=== PATIENT | female | born 1940 | race Caucasian/White ===

== ENCOUNTER → 2016-12-10 | Outpatient (CLI) | payer MEDICARE, BC ==
[~2016-12-10] MED LIST: BENT20TA PO; ENAL2.5 PO; LEVO50TA4 PO; MOTR100T PO; MUSCLE RELAXER; ZOFR4TAB3 SL
--- NOTE | 2016-12-12 11:16 | EKG ---
Date Performed: 12/10/2016 Time Performed: 16:35:16 PTAGE: 76 years EKG: Sinus rhythm POSSIBLE LEFT ATRIAL ENLARGEMENT BORDERLINE ECG NO PREVIOUS TRACING DOCTOR: Lester Deluna Interpretating Date/Time 12/12/2016 11:13:11
== END ==
LOC: HRAD 15:55
PROVIDERS: ATTEND Surgery
DX: Z01.818 Encounter for other preprocedural examination (principal); R94.31 Abnormal electrocardiogram [ECG] [EKG]
CPT/HCPCS: 93005

== ENCOUNTER → 2016-12-18 | Day surgery (SDC) | payer MEDICARE, BC ==
[~2016-12-18] MED LIST changes: +BUPIVACAINE HCL PF 0.5% 10 ML VIAL ONE; +ISOSULFAN BLUE 50 MG/5 ML VIAL SQ ONE; +KETOROLAC TROMETHAMINE 30 MG/ML (IVP) VIAL ONE; +LACTATED RINGER'S 1000 ML INJ 1,000 ML ONE; +MIDAZOLAM HCL 2 MG/2 ML VIAL ONE; +ONDANSETRON HCL 4 MG/2 ML VIAL IV PUSH ONE; +PROPOFOL 100 MG/10 ML INJ IV ONE; +SODIUM CHLORIDE 0.9% 20 ML VIAL ONE; +ceFAZolin 2 GM PREMIX 50 ML ONE; +ceFAZolin INJ 1,000 MG VIAL ONE; +oxyCODONE/ACETAMINOPHEN 5 MG/325 MG TAB ONE
--- NOTE | 2016-12-18 13:17 | TN ---
cc: KENYETTA DOAN M.D. DATE OF SURGERY 12/18/2016 PRINCIPAL DIAGNOSIS Left breast cancer POSTOPERATIVE DIAGNOSIS Left breast cancer PROCEDURE PERFORMED Left breast needle-localized lumpectomy with oncoplastic reconstruction and left axillary sentinel lymph node biopsy. SURGEON Kenyetta Doan MD ANESTHESIA General via LMA device. INDICATION The patient is a 76-year-old female who had a density close to the chest wall which was less than 1 cm in size on imaging. Ultrasound-guided biopsy demonstrated an 8 mm invasive lobular carcinoma which was ER positive and HER2/charlotte positive. She now presents for definitive surgical therapy. PROCEDURE PERFORMED After informed consent was obtained and site verification was performed, the patient was brought to the radiology suite where she underwent needle localization of her prior biopsy site and peritumoral radionuclide injection. She was then brought to the major operating room where she underwent general anesthesia via an LMA device. The left breast and arm were prepped and draped in sterile fashion. 5 cc of half-strength Lymphazurin were injected in the subareolar left breast and a 5-minute massage was performed. She was given a single dose of IV Ancef and sequential compression hose were placed. An incision was anesthetized at the inferior aspect of the left axillary hairline and both sharp and electrocautery dissection was performed until the clavipectoral fascia was divided and the level I axilla was entered. There were blue lymphatic channels identified and a single blue lymph node was noted and circumferentially dissected free from surrounding structures. This lymph node had a count of 223 and was 2+ blue. No other sentinel lymph nodes were identified and the background count in the axilla was six. Good hemostasis was noted and the wound was closed using interrupted 3-0 Vicryl subcutaneous sutures and a 4-0 Monocryl subcuticular suture. The long thoracic, thoracodorsal, axillary vein, and intercostal brachial nerve were all identified and remained intact throughout the dissection. Attention was then turned to the left breast where a wire was identified and the lesion was noted at 1 o'clock 7 cm from the nipple. A periareolar skin incision was anesthetized and incised sharply. Sharp dissection was performed out to the wire entry point through the skin and the wire was secured with a hemostat and cut off at the skin. A 2-0 silk transfixion suture was placed at the wire entry point into the breast tissue and both sharp and electrocautery dissection were then performed circumferentially around the wire. The lesion was close to the chest wall and the dissection was carried down to the pectoralis muscle. The specimen was oriented with two sutures laterally, one long suture anteriorly, and one short suture superiorly. The specimen was then removed and sent to mammography and the clip and density were present within the specimen. It was then sent for permanent pathologic evaluation. There was a significant upper outer quadrant defect extending down to the muscle and the surrounding breast tissue was mobilized at the level of the anterior breast fascia and the pectoralis muscle. Four clips were placed on the muscle at the site of the tumor and the overlying breast tissue was circumferentially dissected and loosely approximated using interrupted Vicryl sutures. Good hemostasis was noted and the subcutaneous tissue was reapproximated with interrupted 3-0 Vicryl sutures. The skin was reapproximated with a 4-0 Monocryl subcuticular suture and Steri-Strips and sterile dressings were then applied to the breast and axillary wounds. The patient tolerated the procedure well with minimal blood loss and she was extubated in the operating room and brought to the recovery room in good condition. All sponge and needle counts were correct at the conclusion of the case. MD ARTHUR Hernandez/MIL /12:54 PM /1:08 PM
== END | disposition home or self-care (01) ==
LOC: ESDC 07:02
PROVIDERS: ATTEND Surgery
DX: C50.912 Malignant neoplasm of unspecified site of left female breast (principal)
CPT/HCPCS: 00400; 01610; 19125; 38525; 38792; 88305; 88307; J0690; J1885; J2250; J2405; J3010; J7120; Q9968

== ENCOUNTER 2017-01-10 12:21 | Emergency (ER) | payer MEDICARE, BC ==
[~2017-01-10] VITALS: Ht 157.5 cm; Wt 52.0 kg
[~2017-01-10 12:21] MED LIST changes: -BENT20TA PO; -BUPIVACAINE HCL PF 0.5% 10 ML VIAL ONE; -ISOSULFAN BLUE 50 MG/5 ML VIAL SQ ONE; -KETOROLAC TROMETHAMINE 30 MG/ML (IVP) VIAL ONE; -LACTATED RINGER'S 1000 ML INJ 1,000 ML ONE; -LEVO50TA4 PO; -MIDAZOLAM HCL 2 MG/2 ML VIAL ONE; -ONDANSETRON HCL 4 MG/2 ML VIAL IV PUSH ONE; -PROPOFOL 100 MG/10 ML INJ IV ONE; -SODIUM CHLORIDE 0.9% 20 ML VIAL ONE; -ZOFR4TAB3 SL; -ceFAZolin 2 GM PREMIX 50 ML ONE; -ceFAZolin INJ 1,000 MG VIAL ONE; -oxyCODONE/ACETAMINOPHEN 5 MG/325 MG TAB ONE
[2017-01-10 12:24] VITALS: BP 116/51; PULSE 69; RESP 18; TEMP 98.7; O2SAT 99
[2017-01-10] MEDS ORDERED: LEVO50TA4 PO (12:30)
[2017-01-10 12:41] LABS: AUTOMATED NEUTROPHIL # 4.2 TH/MM3 (1.8-7.7); BASOPHIL # 0.1 TH/MM3 (0-0.2); BASOPHIL % 1.4 % (0.0-2.0); EOSINOPHIL # 0.1 TH/MM3 (0-0.4); EOSINOPHIL % 1.1 % (0.0-4.0); HEMATOCRIT 34.2 % (35.0-46.0); HEMO FLAGS DIFF FINAL; LYMPH % 16.9 % (9.0-44.0); MEAN CELL VOLUME 88.2 FL (80.0-100.0); MEAN CORPUSCULAR HEMOGLOBIN 29.5 PG (27.0-34.0); MEAN CORPUSCULAR HGB CONC 33.5 % (32.0-36.0); MONO % 10.7 % (0.0-8.0); NEUT % 69.9 % (16.0-70.0); PLATELET COUNT 213 TH/MM3 (150-450); RED BLOOD COUNT 3.87 MIL/MM3 (4.00-5.30); RED CELL DISTRIBUTION WIDTH 12.6 % (11.6-17.2); WHITE BLOOD COUNT 6.1 TH/MM3 (4.0-11.0)
--- NOTE | 2017-01-10 12:41 | PD ---
HPI Chief Complaint: Syncope/Near-Syncope Time Seen by Provider: 12:32 Travel History International Travel<30 days: No Contact w/Intl Traveler<30days: No Traveled to known affect area: No History of Present Illness HPI 76-year-old female patient with his history of hypothyroidism, presents to the ER today because she has had a one-week history of sore throat, headaches, and lightheadedness which worsened today, had a syncopal episode according to patient's . She states she is also nauseous and vomited. She has had previous episodes of syncope when she does not eat in time according to her . Patient states that she has been having a viral illness and states that he has also had some similar symptoms for the past week. Modifying Factors: None Associated Signs & Symptoms: Sore throat, headaches, lightheadedness, syncope Risk Factors: Sick contact [facility] Past Medical History Cancer: Yes (BREAST) Diminished Hearing: No Neurologic: Yes (VERTIGO) Thyroid Disease: Yes Influenza Vaccination: No ?: Not Past Surgical History Other Surgery: Yes (LEFT LUMPECTOMY) Social History Alcohol Use: No Tobacco Use: No Substance Use: No Allergies-Medications (Allergen,Severity, Reaction): Coded Allergies: No Known Allergies (Unverified , 01/10/17) Reported Meds & Prescriptions Reported Meds & Active Scripts Active Reported Levothyroxine (Levothyroxine Sodium) 50 Mcg Tab 50 Mcg PO DAILY Review of Systems Except as stated in HPI: all other systems reviewed are Neg Physical Exam Narrative GENERAL: Well-developed elderly white female patient who is currently not in acute distress. Awake and oriented 3. SKIN: Focused skin assessment warm/dry. HEAD: Atraumatic. Normocephalic. EYES: Pupils equal and round. No scleral icterus. No injection or drainage. ENT: No nasal bleeding or discharge. Mucous membranes pink and moist. NECK: Trachea midline. No JVD. CARDIOVASCULAR: Regular rate and rhythm. No murmur appreciated. Pulses are present and equal bilaterally. RESPIRATORY: No accessory muscle use. Clear to auscultation. Breath sounds equal bilaterally. GASTROINTESTINAL: Abdomen soft, non-tender, nondistended. Hepatic and splenic margins not palpable. MUSCULOSKELETAL: No obvious deformities. No clubbing. No cyanosis. No edema. NEUROLOGICAL: Awake and alert. No obvious cranial nerve deficits. Motor grossly within normal limits. Normal speech. PSYCHIATRIC: Appropriate mood and affect; insight and judgment normal. Data Data Last Documented VS Vital Signs Date Time Temp Pulse Resp B/P Pulse Ox O2 Delivery O2 Flow Rate FiO2 01/10/17 12:43 65 18 129/60 99 Room Air 01/10/17 12:24 98.7 Orders Complete Blood Count With Diff (01/10/17 12:32) Comprehensive Metabolic Panel (01/10/17 12:32) Magnesium (Mg) (01/10/17 12:32) Ckmb (Isoenzyme) Profile (01/10/17 12:32) Troponin I (01/10/17 12:32) Urinalysis - C+S If Indicated (01/10/17 12:32) Chest, Single Ap (01/10/17 12:32) Ecg Monitoring (01/10/17 12:32) Iv Access Insert/Monitor (01/10/17 12:32) Oximetry (01/10/17 12:32) Ondansetron Inj (Zofran Inj) (01/10/17 12:45) Sodium Chloride 0.9% Flush (Ns Flush) (01/10/17 12:45) Ct Brain W/O Iv Contrast(Rout) (01/10/17 13:23) Labs Laboratory Tests Test 01/10/17 01/10/17 12:35 14:10 White Blood Count 6.1 TH/MM3 Red Blood Count 3.87 MIL/MM3 Hemoglobin 11.4 GM/DL Hematocrit 34.2 % Mean Corpuscular Volume 88.2 FL Mean Corpuscular Hemoglobin 29.5 PG Mean Corpuscular Hemoglobin 33.5 % Concent Red Cell Distribution Width 12.6 % Platelet Count 213 TH/MM3 Mean Platelet Volume 7.9 FL Neutrophils (%) (Auto) 69.9 % Lymphocytes (%) (Auto) 16.9 % Monocytes (%) (Auto) 10.7 % Eosinophils (%) (Auto) 1.1 % Basophils (%) (Auto) 1.4 % Neutrophils # (Auto) 4.2 TH/MM3 Lymphocytes # (Auto) 1.0 TH/MM3 Monocytes # (Auto) 0.7 TH/MM3 Eosinophils # (Auto) 0.1 TH/MM3 Basophils # (Auto) 0.1 TH/MM3 CBC Comment DIFF FINAL Differential Comment Sodium Level 142 MEQ/L Potassium Level 3.6 MEQ/L Chloride Level 108 MEQ/L Carbon Dioxide Level 24.2 MEQ/L Anion Gap 10 MEQ/L Blood Urea Nitrogen 6 MG/DL Creatinine 0.83 MG/DL Estimat Glomerular Filtration 67 ML/MIN Rate Random Glucose 109 MG/DL Calcium Level 7.7 MG/DL Magnesium Level 2.0 MG/DL Total Bilirubin 0.5 MG/DL Aspartate Amino Transf 15 U/L (AST/SGOT) Alanine Aminotransferase 16 U/L (ALT/SGPT) Alkaline Phosphatase 48 U/L Total Creatine Kinase 48 U/L Troponin I LESS THAN 0.02 NG/ML Total Protein 6.3 GM/DL Albumin 3.0 GM/DL Urine Collection Type CLEAN CATCH Urine Color YELLOW Urine Turbidity CLEAR Urine pH 7.0 Urine Specific [place] 1.012 Urine Protein TRACE mg/dL Urine Glucose (UA) NEG mg/dL Urine Ketones TRACE mg/dL Urine Occult Blood NEG Urine Nitrite NEG Urine Bilirubin NEG Urine Leukocyte Esterase SMALL Urine WBC 0-2 /hpf Urine Squamous Epithelial 0-5 /hpf Cells Urine Amorphous Sediment FEW Urine Hyaline Casts 0-2 /lpf Microscopic Urinalysis Comment CULT NOT INDICATED MDM Medical Decision Making Medical Screen Exam Complete: Yes Emergency Medical Condition: Yes Medical Record Reviewed: Yes Interpretation(s) EKG shows NSR, no ST elevation or depression, and no arrhythmias. No significant T-wave inversions. Laboratory Tests Test 01/10/17 01/10/17 12:35 14:10 Red Blood Count 3.87 MIL/MM3 (4.00-5.30) Hemoglobin 11.4 GM/DL (11.6-15.3) Hematocrit 34.2 % (35.0-46.0) Monocytes (%) (Auto) 10.7 % (0.0-8.0) Chloride Level 108 MEQ/L (98-107) Blood Urea Nitrogen 6 MG/DL (7-18) Estimat Glomerular Filtration 67 ML/MIN (>89) Rate Random Glucose 109 MG/DL (74-106) Calcium Level 7.7 MG/DL (8.5-10.1) Troponin I LESS THAN 0.02 NG/ML (0.02-0.05) Total Protein 6.3 GM/DL (6.4-8.2) Albumin 3.0 GM/DL (3.4-5.0) Urine Ketones TRACE mg/dL (NEG) Urine Leukocyte Esterase SMALL (NEG) Last [address] 01/10/17 1323 Signed Impressions: Service Date/Time: Tuesday, January 10, 2017 13:55 - CONCLUSION: No acute disease. Gonzalo Stanley MD Chest X-Ray 01/10/17 1232 Signed Impressions: Service Date/Time: Tuesday, January 10, 2017 13:06 - CONCLUSION: No acute disease. Gonzalo Stanley MD Differential Diagnosis Syncopedehydration versus electrolyte abnormalities versus dysrhythmias versus vasovagal versus acute intracranial processes Narrative Course Patient was initially hypotensive and patient had been given IV fluids in the ER. Lab work did not indicate any signs of significant dehydration or electrolyte abnormalities. On initial evaluation, patient denies any significant headaches now. She has no focal neurological deficits and is able to ambulate in the ER after IV fluids without issues. CT of the brain did not reveal any signs of acute cranial processes. At this point, my plan would be to release the patient with follow-up closely with primary care physician. Stay hydrated. Return for any worsening in symptoms as needed. The plan has been discussed with the patient and she states understanding. Diagnosis Primary Impression: Syncope Med/Other Pt SpecificInfo: Prescription(s) given Scripts Ondansetron Odt (Zofran Odt)4 Mg Tab4 Mg SL Q6HR PRN (Nausea/Vomiting) #7 TAB Ref 0 Prov:Vaishnavi Sanchez MD 01/10/17 Disposition: 01 DISCHARGE HOME Condition: Stable Vaishnavi Sanchez MD Jan 10, 2017 12:41
[2017-01-10 12:43] VITALS: BP 129/60; PULSE 65; RESP 18; O2SAT 99
[2017-01-10] MEDS ORDERED: ONDANSETRON HCL 4 MG/2 ML VIAL IVP ONE (12:45)
[2017-01-10] MEDS ORDERED: SODIUM CHLORIDE 0.9% FLUSH 10 ML FLUSH IVF PRN (12:45)
[2017-01-10 12:50] LABS: CHLORIDE 108 MEQ/L (98-107); POTASSIUM 3.6 MEQ/L (3.5-5.1); SODIUM (NA) 142 MEQ/L (136-145)
[2017-01-10 12:53] LABS: ANION GAP 10 MEQ/L (5-15); BICARBONATE 24.2 MEQ/L (21.0-32.0); BLOOD UREA NITROGEN 6 MG/DL (7-18)
[2017-01-10 12:56] LABS: ALT (GPT) 16 U/L (10-53); AST (GOT) 15 U/L (15-37); GLOMERULAR FILTRATION RATE 67 ML/MIN (>89)
[2017-01-10 12:58] LABS: TOTAL BILIRUBIN ADULT 0.5 MG/DL (0.2-1.0)
[2017-01-10 12:59] LABS: ALKALINE PHOSPHATASE 48 U/L (45-117)
[2017-01-10 13:15] LABS: CREATINE KINASE 48 U/L (26-192)
--- NOTE | 2017-01-10 13:25 | RADHPO ---
EXAM DATE/TIME: 01/10/2017 13:06 [facility] COMPARISON: No previous studies available for comparison. INDICATIONS : Syncope, palpitations, nausea and vomiting MEDICAL HISTORY : None. SURGICAL HISTORY : lumpectomy ENCOUNTER: Initial ACUITY: 4 - 6 days PAIN SCORE: 0/10 LOCATION: Bilateral chest FINDINGS: A single view of the chest demonstrates the lungs to be symmetrically aerated without evidence of mas s, infiltrate or effusion. The cardiomediastinal contours are unremarkable. Osseous structures are intact. Clips are seen over the left chest. CONCLUSION: No acute disease. Gonzalo Stanley MD on January 10, 2017 at 13:23 Board Certified Radiologist. This report was verified electronically.
[2017-01-10 14:21] LABS: BLOOD, URINE NEG (NEG); GLUCOSE,URINE NEG (NEG); KETONE, URINE TRACE mg/dL (NEG); NITRITE,URINE NEG (NEG)
[2017-01-10 14:27] LABS: METHOD OF COLLECTION CLEAN CATCH; URINE COLOR YELLOW (YELLW/STRAW)
[2017-01-10 14:28] LABS: COMMENT (UR) CULT NOT INDICATED; CULTURE IF INDICATED CULT NOT INDICATED; HYALINE CAST, URINE 0-2 /lpf (RARE); SQUAMOUS EPITHELIAL CELL URINE 0-5 /hpf (0-5); WBC, URINE 0-2 /hpf (0-5)
--- NOTE | 2017-01-10 14:32 | RADHPO ---
EXAM DATE/TIME: 01/10/2017 13:55 [facility] COMPARISON: No previous studies available for comparison. INDICATIONS : Syncope. RADIATION DOSE: 60.92 CTDIvol (mGy) MEDICAL HISTORY : Carcinoma, breast. SURGICAL HISTORY : Left lumpectomy. ENCOUNTER: Initial ACUITY: 1 day PAIN SCALE: 0/10 LOCATION: cranial TECHNIQUE: Multiple contiguous axial images were obtained of the head. Using automated exposure control and adj ustment of the mA and/or kV according to patient size, radiation dose was kept as low as reasonably a chievable to obtain optimal diagnostic quality images. FINDINGS: CEREBRUM: The ventricles are normal for age. No evidence of midline shift, mass lesion, hemorrhage or acute in farction. No extra-axial fluid collections are seen. POSTERIOR FOSSA: The cerebellum and brainstem are intact. The 4th ventricle is midline. The cerebellopontine angle i s unremarkable. EXTRACRANIAL: The visualized portion of the orbits is intact. SKULL: The calvaria is intact. No evidence of skull fracture. CONCLUSION: No acute disease. Gonzalo Stanley MD on January 10, 2017 at 14:30 Board Certified Radiologist. This report was verified electronically.
[2017-01-10 14:44] VITALS: BP 131/58
[2017-01-10] MEDS ORDERED: ZOFR4TAB3 SL (14:44)
== END 2017-01-10 14:50 | disposition home or self-care (01) ==
LOC: PHED 12:21
DX: R55 Syncope and collapse (principal); R51 Headache; J02.9 Acute pharyngitis, unspecified; R42 Dizziness and giddiness; E03.9 Hypothyroidism, unspecified; Z85.3 Personal history of malignant neoplasm of breast
CPT/HCPCS: 70450; 71010; 80053; 81001; 82550; 83735; 84484; 85025; 96374; 99284; J2405

== ENCOUNTER → 2017-01-15 | Day surgery (SDC) | payer MEDICARE, BC ==
[~2017-01-15] MED LIST changes: +BENT20TA PO; +BUPIVACAINE HCL PF 0.5% 10 ML VIAL ONE; +BUPIVACAINE/EPINEPHRINE 0.5% 50 ML VIAL ONE; -ENAL2.5 PO; +HEPARIN SODIUM - IV 10,000 UNITS/10 ML VIAL ONE; +KETOROLAC TROMETHAMINE 30 MG/ML (IVP) VIAL IV PUSH ONE; +LACTATED RINGER'S 1000 ML INJ 1,000 ML ONE; +LEVO50TA4 PO; +MIDAZOLAM HCL 2 MG/2 ML VIAL ONE; -MOTR100T PO; -MUSCLE RELAXER; +ONDANSETRON HCL 4 MG/2 ML VIAL IV PUSH ONE; +PROPOFOL 200 MG/20 ML AMP IV ONE; +SODIUM CHLORIDE 0.9% 20 ML VIAL ONE; +SODIUM CHLORIDE 0.9% INJ 10 ML ONE; +ZOFR4TAB3 SL; +ceFAZolin 2 GM PREMIX 50 ML ONE
--- NOTE | 2017-01-15 11:11 | TN ---
cc: KENYETTA DOAN DATE OF SURGERY 01/15/2017 PRINCIPAL DIAGNOSIS Lobular carcinoma of the left breast with positive superior margin. ATTENDING PHYSICIAN Kenyetta Doan MD PROCEDURE PERFORMED Re-excision of left breast superior margin and right subclavian [id number] placement. ANESTHESIA General via LMA device. INDICATION The patient is a 76-year-old female who had a recent left breast needle-localized lumpectomy and sentinel lymph node biopsy for stage I invasive lobular carcinoma. The superior margin was positive and her tumor was HER2/charlotte amplified. There has been a recommendation for chemotherapy and she now presents for port placement and re-excision of her positive superior margin. FINDINGS AT THE TIME OF SURGERY Normal right subclavian anatomy was identified and the left breast lumpectomy cavity was easily identified. There was no gross evidence of residual disease. PROCEDURE PERFORMED After informed consent was obtained and site verification was performed, the patient was brought to the major operating room where she underwent general anesthesia via an LMA device. She was given a single dose of IV Ancef and sequential compression hose were placed. The right and left chest were prepped and draped in sterile fashion. The arms were tucked and she was placed in the Trendelenburg position. The right subclavian vein was accessed via percutaneous cannulation and a J-wire was advanced easily into the central circulation via the Seldinger technique where its position was confirmed with fluoroscopy. Local analgesia was applied around the wire and both sharp and electrocautery dissection were performed to create a subcutaneous port for the reservoir. The catheter was measured out at 30 cm and cut off. A peel-away sheath and introducer were advanced over the wire under direct fluoroscopic vision and the introducer and wire were removed. The catheter advanced easily into the central circulation and the peel-away sheath was removed. Fluoroscopy demonstrated good position of the catheter tip at 17 cm and it was cut off at that point and secured to the reservoir. The reservoir was noted to flush and aspirate easily and it was secured to the chest wall with a single 2-0 Prolene suture. The wound was closed using interrupted 3-0 Vicryl subcutaneous sutures and a 4-0 Monocryl subcuticular suture. Steri-Strips and sterile dressing were applied. The patient was taken out of Trendelenburg and the periareolar left breast scar was anesthetized with 0.5% Marcaine plain. Sharp dissection was performed until the lumpectomy cavity was identified. The seroma was aspirated and the superior margin was identified and sharply demarcated and excised. A stitch was placed on the new margin which was two different segments of superior margin tissue and these were sent permanently as a superior margin specimen. Hemostasis was easily obtained with electrocautery and the wound was closed using interrupted 3-0 Vicryl subcutaneous sutures and a 4-0 Monocryl subcuticular suture. Steri-Strips and a sterile dressing were applied. The patient tolerated the procedure well with an estimated blood loss of 20 cc total and she was extubated in the operating room and brought to the recovery room in good condition. All sponge and needle counts were correct at the conclusion of the case. MD ARTHUR Hernandez/MIL /10:52 AM /11:06 AM
== END | disposition home or self-care (01) ==
LOC: ESDC 07:17
PROVIDERS: ATTEND Surgery
DX: C50.912 Malignant neoplasm of unspecified site of left female breast (principal)
CPT/HCPCS: 00400; 00532; 19301; 36561; 77001; 88305; J0690; J1644; J1885; J2250; J2405; J3010; J7120; 88307; C1788; J1642

== ENCOUNTER 2017-01-30 12:08 | Emergency (ER) | payer MEDICARE, BC ==
[~2017-01-30] VITALS: Ht 157.5 cm; Wt 52.6 kg
[~2017-01-30 12:08] MED LIST changes: -BENT20TA PO; -BUPIVACAINE HCL PF 0.5% 10 ML VIAL ONE; -BUPIVACAINE/EPINEPHRINE 0.5% 50 ML VIAL ONE; -HEPARIN SODIUM - IV 10,000 UNITS/10 ML VIAL ONE; -KETOROLAC TROMETHAMINE 30 MG/ML (IVP) VIAL IV PUSH ONE; -LACTATED RINGER'S 1000 ML INJ 1,000 ML ONE; -MIDAZOLAM HCL 2 MG/2 ML VIAL ONE; -ONDANSETRON HCL 4 MG/2 ML VIAL IV PUSH ONE; -PROPOFOL 200 MG/20 ML AMP IV ONE; -SODIUM CHLORIDE 0.9% 20 ML VIAL ONE; -SODIUM CHLORIDE 0.9% INJ 10 ML ONE; -ceFAZolin 2 GM PREMIX 50 ML ONE
[2017-01-30 12:24] VITALS: BP 150/77; PULSE 60; RESP 18; TEMP 97.4; O2SAT 100
[2017-01-30 12:40] LABS: BLOOD, URINE NEG (NEG); GLUCOSE,URINE NEG (NEG); KETONE, URINE NEG (NEG); NITRITE,URINE NEG (NEG); PH, URINE 6.5 (5.0-8.5)
[2017-01-30] MEDS ORDERED: MORPHINE SULFATE 4 MG/ML INJ IV PUSH ONE (12:45)
[2017-01-30] MEDS ORDERED: SODIUM CHLORIDE 0.9% FLUSH 10 ML FLUSH IV FLUSH PRN (12:45)
[2017-01-30] MEDS ORDERED: ONDANSETRON HCL 4 MG/2 ML VIAL IVP ONE (12:45)
[2017-01-30 12:46] LABS: COMMENT (UR) CULT NOT INDICATED; CULTURE IF INDICATED CULT NOT INDICATED; METHOD OF COLLECTION CLEAN CATCH; SQUAMOUS EPITHELIAL CELL URINE 0-5 /hpf (0-5); URINE COLOR YELLOW (YELLW/STRAW)
--- NOTE | 2017-01-30 12:53 | PD ---
HPI . Right lower quadrant pain Chief Complaint: Abdominal Pain Time Seen by Provider: 12:43 Travel History International Travel<30 days: No Contact w/Intl Traveler<30days: No Traveled to known affect area: No History of Present Illness HPI Patient presents with right lower quadrant abdominal pain. It started as a milder mid abdominal pain earlier today. It has migrated to the right lower quadrant. She describes a colicky pain which she rates as 10/10. No noted exacerbating factors. She did eat breakfast this morning and does not feel anorexic. She denies any associated vomiting, diarrhea constipation. No fever. No urinary tract symptoms. She does have some nausea. PFSH Past Medical History Cancer: Yes (BREAST) Diminished Hearing: No Neurologic: Yes (VERTIGO) Thyroid Disease: Yes ?: Not Past Surgical History Other Surgery: Yes (LEFT LUMPECTOMY, port placed left chest) Social History Alcohol Use: No Tobacco Use: No Substance Use: No Allergies-Medications (Allergen,Severity, Reaction): Coded Allergies: No Known Allergies (Unverified , 01/30/17) Reported Meds & Prescriptions Reported Meds & Active Scripts Active Reported Levothyroxine (Levothyroxine Sodium) 50 Mcg Tab 50 Mcg PO DAILY Review of Systems Except as stated in HPI: all other systems reviewed are Neg General / Constitutional: No: Fever, Chills Gastrointestinal: Positive: Nausea, Abdominal Pain, No: Vomiting, Diarrhea, Constipation Genitourinary: No: Urgency, Frequency, Dysuria, Flank Pain Physical Exam Narrative GENERAL: Awake and alert and in no acute distress. SKIN: Warm and dry. HEAD: Atraumatic. Normocephalic. EYES: Pupils equal and round. Extraocular movements are intact. ENT: No nasal bleeding or discharge. Mucous membranes pink and moist. NECK: Trachea midline. Neck supple. CARDIOVASCULAR: Regular rate and rhythm. Heart sounds normal. RESPIRATORY: No accessory muscle use. Lungs are clear with full air movement throughout. GASTROINTESTINAL: Abdomen soft. Bowel sounds present. Right lower quadrant tenderness. Nondistended. MUSCULOSKELETAL: No obvious deformities. No edema. NEUROLOGICAL: Awake and alert. No obvious cranial nerve deficits. Motor grossly within normal limits. Normal speech. PSYCHIATRIC: Appropriate mood and affect; insight and judgment normal. Data Data Last Documented VS Vital Signs Date Time Temp Pulse Resp B/P Pulse Ox O2 Delivery O2 Flow Rate FiO2 01/30/17 14:54 77 18 157/63 99 Room Air 01/30/17 12:24 97.4 Orders Urinalysis - C+S If Indicated (01/30/17 12:15) Basic Metabolic Panel (Bmp) (01/30/17 12:43) Complete Blood Count With Diff (01/30/17 12:43) Ct Abd/Pel W Iv Contrast(Rout) (01/30/17 12:43) Iv Access Insert/Monitor (01/30/17 12:43) Morphine Inj (Morphine Inj) (01/30/17 12:45) Ondansetron Inj (Zofran Inj) (01/30/17 12:45) Sodium Chloride 0.9% Flush (Ns Flush) (01/30/17 12:45) Iohexol 350 Inj (Omnipaque 350 Inj) (01/30/17 14:37) Labs Laboratory Tests Test 01/30/17 01/30/17 12:33 13:03 Urine Collection Type CLEAN CATCH Urine Color YELLOW Urine Turbidity CLEAR Urine pH 6.5 Urine Specific [place] 1.009 Urine Protein NEG mg/dL Urine Glucose (UA) NEG mg/dL Urine Ketones NEG mg/dL Urine Occult Blood NEG Urine Nitrite NEG Urine Bilirubin NEG Urine Leukocyte Esterase NEG Urine Squamous Epithelial 0-5 /hpf Cells Microscopic Urinalysis Comment CULT NOT INDICATED White Blood Count 11.7 TH/MM3 Red Blood Count 4.02 MIL/MM3 Hemoglobin 12.1 GM/DL Hematocrit 36.0 % Mean Corpuscular Volume 89.5 FL Mean Corpuscular Hemoglobin 30.2 PG Mean Corpuscular Hemoglobin 33.8 % Concent Red Cell Distribution Width 12.8 % Platelet Count 219 TH/MM3 Mean Platelet Volume 8.3 FL Neutrophils (%) (Auto) 83.2 % Lymphocytes (%) (Auto) 9.2 % Monocytes (%) (Auto) 4.1 % Eosinophils (%) (Auto) 0.3 % Basophils (%) (Auto) 3.2 % Neutrophils # (Auto) 9.7 TH/MM3 Lymphocytes # (Auto) 1.1 TH/MM3 Monocytes # (Auto) 0.5 TH/MM3 Eosinophils # (Auto) 0.0 TH/MM3 Basophils # (Auto) 0.4 TH/MM3 CBC Comment DIFF FINAL Differential Comment Sodium Level 139 MEQ/L Potassium Level 4.0 MEQ/L Chloride Level 102 MEQ/L Carbon Dioxide Level 25.1 MEQ/L Anion Gap 12 MEQ/L Blood Urea Nitrogen 12 MG/DL Creatinine 0.74 MG/DL Estimat Glomerular Filtration 77 ML/MIN Rate Random Glucose 96 MG/DL Calcium Level 9.0 MG/DL [facility] Medical Decision Making Medical Screen Exam Complete: Yes Emergency Medical Condition: Yes Differential Diagnosis Differential diagnosis of abdominal pain includes but is not limited to gastritis, pancreatitis, hepatitis, gastroenteritis, gallbladder disease, constipation, urinary retention, UTI, peptic ulcer disease, diverticulitis or appendicitis Narrative Course Patient presents with right upper quadrant abdominal pain. CBC & BMP Diagram 01/30/17 13:03 UA is negative. Last Impressions Abdomen/Pelvis CT 01/30/17 1243 Signed Impressions: Service Date/Time: Wednesday, January 30, 2017 14:28 - CONCLUSION: 1. No acute inflammatory process. 2. Scattered hepatic and renal low densities likely benign. 3. Exophytic calcified leiomyoma. David Ureña MD No significant etiology for this patient's abdominal pain has been found. Diagnosis Primary Impression: Abdominal pain Qualified Code: R10.31 - Right lower quadrant abdominal pain Patient Instructions: Abdominal Pain (ED), General Instructions Med/Other Pt SpecificInfo: Prescription(s) given Scripts Dicyclomine (Bentyl)20 Mg Tab20 Mg PO QID #30 TAB Ref 0 Prov:Radha Vallejo MD 01/30/17 Disposition: 01 DISCHARGE HOME Condition: Stable Radha Vallejo MD January 30, 2017 12:53
[2017-01-30 13:08] LABS: AUTOMATED NEUTROPHIL # 9.7 TH/MM3 (1.8-7.7); BASOPHIL # 0.4 TH/MM3 (0-0.2); BASOPHIL % 3.2 % (0.0-2.0); EOSINOPHIL % 0.3 % (0.0-4.0); HEMO FLAGS DIFF FINAL; LYMPH % 9.2 % (9.0-44.0); LYMPHOCYTE # 1.1 TH/MM3 (1.0-4.8); MEAN CELL VOLUME 89.5 FL (80.0-100.0); MEAN CORPUSCULAR HEMOGLOBIN 30.2 PG (27.0-34.0); MEAN CORPUSCULAR HGB CONC 33.8 % (32.0-36.0); MONO % 4.1 % (0.0-8.0); NEUT % 83.2 % (16.0-70.0); PLATELET COUNT 219 TH/MM3 (150-450); RED BLOOD COUNT 4.02 MIL/MM3 (4.00-5.30); RED CELL DISTRIBUTION WIDTH 12.8 % (11.6-17.2); WHITE BLOOD COUNT 11.7 TH/MM3 (4.0-11.0)
[2017-01-30 13:30] LABS: BICARBONATE 25.1 MEQ/L (21.0-32.0)
[2017-01-30] MEDS ORDERED: IOHEXOL 350 MG/ML 10 ML VIAL (for RAD DIAG) IV ONE (14:37)
--- NOTE | 2017-01-30 14:51 | RADHPO ---
EXAM DATE/TIME: 01/30/2017 14:28 [place] COMPARISON: No previous studies available for comparison. INDICATIONS : Abdomen pain and nausea. IV CONTRAST: 100 cc Omnipaque 350 (iohexol) IV ORAL CONTRAST: No oral contrast ingested. RADIATION DOSE: 5.13 CTDIvol (mGy) MEDICAL HISTORY : Carcinoma, breast. SURGICAL HISTORY : None. ENCOUNTER: Initial ACUITY: 1 day PAIN SCALE: 5/10 LOCATION: Right lower quadrant TECHNIQUE: Volumetric scanning of the abdomen and pelvis was performed. Using automated exposure control and ad justment of the mA and/or kV according to patient size, radiation dose was kept as low as reasonably achievable to obtain optimal diagnostic quality images. FINDINGS: LOWER LUNGS: The visualized lower lungs are clear. LIVER: Homogeneous density without lesion. There is no dilation of the biliary tree. No calcified gallston es. Numerous low-density lesions most of which are too small to characterize. SPLEEN: Normal size without lesion. PANCREAS: Within normal limits. KIDNEYS: Normal in size and shape. There is no mass, stone or hydronephrosis. Subcentimeter low-density lesio ns. ADRENAL GLANDS: Within normal limits. VASCULAR: There is no aortic aneurysm. BOWEL/MESENTERY: The stomach, small bowel, and colon demonstrate no acute abnormality. There is no free intraperitone al air or fluid. ABDOMINAL WALL: Within normal limits. RETROPERITONEUM: There is no lymphadenopathy. BLADDER: No wall thickening or mass. REPRODUCTIVE: Small calcified exophytic leiomyoma. INGUINAL: There is no lymphadenopathy or hernia. MUSCULOSKELETAL: Within normal limits for patient age. CONCLUSION: 1. No acute inflammatory process. 2. Scattered hepatic and renal low densities likely benign. 3. Exophytic calcified leiomyoma. David Ureña MD on January 30, 2017 at 14:45 Board Certified Radiologist. This report was verified electronically.
[2017-01-30 14:54] VITALS: BP 157/63; PULSE 77; RESP 18; O2SAT 99
[2017-01-30] MEDS ORDERED: BENT20TA PO (15:02)
== END 2017-01-30 16:16 | disposition home or self-care (01) ==
LOC: PHED 12:08
DX: R10.31 Right lower quadrant pain (principal)
CPT/HCPCS: 74177; 80048; 81001; 85025; 96374; 96375; 99284; J2270; J2405; Q9967